=== PATIENT | male | born 1985 | race Hispanic/Latino ===

== ENCOUNTER 2019-01-29 11:58 | Emergency (ER) | payer SELFPAY ==
[2019-01-29] MEDS ORDERED: Cyclobenzaprine 10 MG TAB ONE (13:00)
[2019-01-29] MEDS ORDERED: Ketorolac Tromethamine 30 MG/ML VIAL ONE (13:00)
== END 2019-01-29 13:10 | disposition home or self-care (01) ==
LOC: ERS 11:58
DX: S16.1XXA Strain of muscle, fascia and tendon at neck level, initial encounter (principal); F17.210 Nicotine dependence, cigarettes, uncomplicated; V49.9XXA Car occupant (driver) (passenger) injured in unspecified traffic accident, initial encounter
CPT/HCPCS: 96372; 99283; J1885